=== PATIENT | female | born 1970 | race Caucasian/White ===

== ENCOUNTER 2022-07-26 09:37 | Emergency (ER) | payer OTHER, SELFPAY ==
--- NOTE | ~2022-07-26 | XR_ITS ---
EXAMINATION: XR ribs RT 2V DATE: 07/26/2022 10:00 INDICATION: Right rib pain. Fall. TECHNIQUE: 2 views of the right ribs on 3 radiographs were obtained. COMPARISON: None. FINDINGS: Calcified pulmonary nodules and calcified hilar lymph nodes are consistent with old granulo matous disease. No right-sided pneumonia, pleural effusion, or pneumothorax. The heart size is normal . There are fractures of right eighth and ninth ribs. IMPRESSION: 1. Acute fractures of right eighth and ninth ribs. Reviewed, dictated and finalized at location A.
--- NOTE | 2022-07-26 09:39 | ED.GENADULT ---
HPI - General Adult General Chief complaint: Unspecified Stated complaint: rib injury right side Time Seen by Provider: 07/26/22 09:39 Source: patient and RN notes reviewed History of Present Illness HPI narrative: Patient is a 51-year-old female who presents the urgent care with complaints of right rib pain. Patient states that she tripped and fell forward, nearly belly flopping on the right side 2 days ago. Patient states she is having some pain with deep breathing but mostly at movement. Patient has been taking Tylenol for the pain. Denies any shortness of breath. No other acute complaints. No acute distress noted. Patient aware of the plan of care. Some parts of this dictation were generated by voice recognition software and may contain typographical and/or grammatical inaccuracies. Related Data Home Medications Medication Instructions Recorded Confirmed ascorbate calcium (vitamin C) 500 500 mg PO DAILY 07/26/22 07/26/22 mg tablet azathioprine 50 mg tablet 50 mg PO BID 07/26/22 07/26/22 buspirone 30 mg tablet 30 mg PO DAILY 07/26/22 07/26/22 calcium citrate 200 mg See Rx Instructions .Route .COMPLEX 07/26/22 07/26/22 ncvjwob-ivmg-ing D3 200 [id number] tablet (ADVANCED Calcium) carbidopa 25 mg-levodopa 100 mg tablet 07/26/22 tablet clonazepam 1 mg tablet mg 07/26/22 galcanezumab-gnlm 120 mg/mL mg subcut 07/26/22 subcutaneous pen injector (Emgality Pen) hydroxychloroquine 200 mg tablet mg PO 07/26/22 mecobalamin (vitamin B12) 1,000 1,000 mcg sublingual DAILY 07/26/22 07/26/22 mcg disintegrating tablet,sublingual multivit with minerals-iron 18 tablet PO 07/26/22 mg-folic ac 400 mcg-vit K 25 mcg tablet (Adults Multivitamin) pantoprazole 40 mg tablet,delayed mg PO 07/26/22 release paroxetine HCl 40 mg tablet mg PO 07/26/22 primidone 50 mg tablet mg 07/26/22 propranolol 160 mg capsule,24 mg PO 07/26/22 hr,extended release topiramate 100 mg capsule,extended mg PO 07/26/22 release 24 hr (Trokendi XR) ubrogepant 50 mg tablet (Ubrelvy) mg 07/26/22 venlafaxine 50 mg tablet mg 07/26/22 Allergies Allergy/AdvReac Type Severity Reaction Status Date / Time latex Allergy Rash Verified 07/26/22 10:29 Review of Systems Review of Systems: CONSTITUTIONAL: Denies fever, chills, or sweats. EYES: Denies visual changes, redness, or discharge. ENT: Denies rhinorrhea, congestion, sore throat, or otalgia. CARDIOVASCULAR: Denies chest pain, palpitations, or edema. RESPIRATORY: Denies cough or dyspnea. GASTROINTESTINAL: Denies abdominal pain, nausea, vomiting, or diarrhea. GENITOURINARY: Denies dysuria or hematuria. SKIN: Denies rash or itching. MUSCULOSKELETAL: Reports of right rib/chest discomfort with movement NEUROLOGIC: Denies headache, numbness, or weakness. All other systems reviewed are negative, except as documented in HPI. PMFSH Comments At the time of my signature, I reviewed and agree with the nursing past medical, surgical, social, and family history. There is no relevant family history pertinent to the patient complaint. Exam Narrative: GENERAL: This is a well-nourished, well-developed patient, in no apparent distress. HEAD: normocephalic, atraumatic. EYES: PERRL. Sclera clear/white. Vision is grossly intact. EARS: External ears normal NOSE: External nose normal with no obvious nasal discharge, nares without redness, no rhinorrhea. THROAT: Mucous membranes moist NECK: Neck supple CARDIOVASCULAR: Regular rate and rhythm without murmurs, gallops, or rubs. RESPIRATORY: Mild to moderate tenderness to the lateral anterior right chest. Clear to auscultation. Breath sounds equal bilaterally. No wheezes, rales, or rhonchi. SKIN: warm, intact with no suspicious lesions or rash, good texture and turgor. NEURO: awake, alert, and oriented to person, place and time. There were no obvious focal neurologic abnormalities. EXTREMITIES: No clubbing, cyanosis, or edema. Cou
[2022-07-26 09:47] VITALS: BP 144/88; PULSE 71; RESP 18; TEMP 36.6; O2SAT 100
== END 2022-07-26 10:45 | disposition home or self-care (01) ==
PROVIDERS: Emergency Provider Nurse Practitioner Family
DX: S22.41XA Multiple fractures of ribs, right side, initial encounter for closed fracture (principal); W01.0XXA Fall on same level from slipping, tripping and stumbling without subsequent striking against object, initial encounter; M32.9 Systemic lupus erythematosus, unspecified; F41.9 Anxiety disorder, unspecified; F32.A Depression, unspecified
CPT/HCPCS: 71100; 99213; G0463

== ENCOUNTER 2022-12-25 12:10 | Emergency (ER) | payer OTHER, SELFPAY ==
--- NOTE | ~2022-12-25 | XR_ITS ---
XR shoulder LT min 2V 12/25/2022 12:40 Indication: Status post recent fall. Left shoulder pain. Procedure: 4 views left shoulder Comparison: No prior studies for comparison. Findings: There is anatomic alignment. No fracture, subluxation or dislocation. There is normal yarn examiner skeins alization. No soft tissue abnormality. Visualized aspects of the lungs are unremarkable. Impression: 1: No acute bone or joint abnormality. Reviewed, dictated and finalized at location L. [employer] Impression: 1: No acute bone or joint abnormality.
[2022-12-25 12:16] VITALS: BP 118/76; PULSE 85; RESP 14; TEMP 37; O2SAT 100
--- NOTE | 2022-12-25 12:25 | ED.UPPEXIN ---
HPI - Extremity Injury (Upper) General Chief Complaint: Extremity Injury, Upper Stated Complaint: Fall Injury/Left Shoulder Source: patient and RN notes reviewed History of Present Illness HPI narrative: 52 yo F with hx of Lupus, OA, and tremors, presents to urgent care with complaints of left posterior shoulder pain. Pt states last Thursday (10 days ago) she was unloading her truck when she lost her balance, causing her to fall onto her tailbone and hit her left shoulder. Pt states her tailbone is just bruised but her left shoulder pain is not improving. Pt reports taking Tylenol #3 without any relief. Denies any other complaints, including chest pain, SOB, vomiting, or neck pain. Related Data Home Medications Medication Instructions Recorded Confirmed ascorbate calcium (vitamin C) 500 500 mg PO DAILY 07/26/22 12/25/22 mg tablet azathioprine 50 mg tablet 50 mg PO BID 07/26/22 12/25/22 buspirone 30 mg tablet 30 mg PO DAILY 07/26/22 12/25/22 calcium citrate 200 mg See Rx Instructions .Route .COMPLEX 07/26/22 12/25/22 kxnxtsd-zztd-moa D3 200 [id number] tablet (ADVANCED Calcium) clonazepam 1 mg tablet 1 mg PO DAILY 07/26/22 12/25/22 galcanezumab-gnlm 120 mg/mL See Rx Instructions .Route .COMPLEX 07/26/22 12/25/22 subcutaneous pen injector (Emgality Pen) hydroxychloroquine 200 mg tablet See Rx Instructions .Route .COMPLEX 07/26/22 12/25/22 mecobalamin (vitamin B12) 1,000 1,000 mcg sublingual DAILY 07/26/22 12/25/22 mcg disintegrating tablet,sublingual multivit with minerals-iron 18 1 tablet PO DAILY 07/26/22 12/25/22 mg-folic ac 400 mcg-vit K 25 mcg tablet (Adults Multivitamin) pantoprazole 40 mg tablet,delayed 40 mg PO DAILY 07/26/22 12/25/22 release paroxetine HCl 40 mg tablet 60 mg PO DAILY 07/26/22 12/25/22 primidone 50 mg tablet See Rx Instructions .Route .COMPLEX 07/26/22 12/25/22 propranolol 160 mg capsule,24 160 mg PO DAILY 07/26/22 12/25/22 hr,extended release topiramate 100 mg capsule,extended 200 mg PO HS 07/26/22 12/25/22 release 24 hr (Trokendi XR) topiramate 50 mg capsule,extended 50 mg PO HS 07/26/22 12/25/22 release 24 hr (Trokendi XR) ubrogepant 50 mg tablet (Ubrelvy) See Rx Instructions .Route .COMPLEX 07/26/22 12/25/22 venlafaxine 50 mg tablet 50 mg PO DAILY 07/26/22 12/25/22 Allergies Allergy/AdvReac Type Severity Reaction Status Date / Time latex Allergy Rash Verified 12/25/22 12:22 Review of Systems Review of Systems: CONSTITUTIONAL: Denies fever, chills, or sweats. EYES: Denies visual changes, redness, or discharge. ENT: Denies otalgia and sore throat CARDIOVASCULAR: Denies chest pain, palpitations, or edema. RESPIRATORY: Denies cough or dyspnea. GASTROINTESTINAL: Denies abdominal pain, nausea, vomiting, or diarrhea. GENITOURINARY: Denies dysuria or hematuria. SKIN: Denies rash or itching. MUSCULOSKELETAL: Left posterior shoulder pain NEUROLOGIC: Denies headache, numbness, or weakness. PMFSH Comments At the time of my signature, I reviewed and agree with the nursing past medical, surgical, social, and family history. There is no relevant family history pertinent to the patient complaint. Exam Narrative: GENERAL: This is a well-nourished, well-developed patient, in no apparent distress. HEAD: normocephalic, atraumatic. EYES: PERRL. Sclera clear/white. Vision is grossly intact. EARS: External ears normal, auditory canals clear and without drainage, TMs normal without perforation. Hearing grossly intact. NOSE: External nose normal with no obvious nasal discharge, nares without redness, no rhinorrhea. THROAT: Mucous membranes moist, posterior pharynx clear. NECK: Neck supple, non-tender without lymphadenopathy, masses or thyromegaly. CARDIOVASCULAR: Regular rate and rhythm without murmurs, gallops, or rubs. RESPIRATORY: Clear to auscultation. Breath sounds equal bilaterally. No wheezes, rales, or rhonchi. GASTROINTESTINAL: Abdomen soft, non-tender, nondiste
== END 2022-12-25 13:00 | disposition home or self-care (01) ==
PROVIDERS: Emergency Provider Nurse Practitioner Family; PCP Family Medicine
DX: S43.402A Unspecified sprain of left shoulder joint, initial encounter (principal); W18.39XA Other fall on same level, initial encounter
CPT/HCPCS: 73030; 99213; G0463